=== PATIENT | female | born 1950 | race Caucasian/White ===

== ENCOUNTER 2016-10-29 10:45 | Day surgery (SDC) | payer MEDICARE ==
--- NOTE | ~2016-10-29 | EGD ---
EGD REPORT [facility] [address] [address] NAME: NERIS MÉNDEZ : [birth year] [place]US : [place] [facility] [place] [id number] AGE: 66 ADM/REG DATE : 10/29/16 MR#: [id number] REPORT SERV DATE: 10/29/16 DICTATED BY: DATE: REPORT STATUS : Draft TRANSCRIBED BY: [employer] DATE: 10/29/16 [facility] Patient Name: Neris Méndez Date of : 1950 Attending MD: BIANCA ALBERTS MD Procedure Date No Time: 10/29/2016 Procedure: Colonoscopy Indications: High risk colon cancer surveillance: Personal history of colonic polyps Referring MD: BENI MONTGOMERY Medicines: Monitored Anesthesia Care Complications: No immediate complications. Procedure: Pre-Anesthesia Assessment: - ASA Grade Assessment: III - A patient with severe systemic disease. After I obtained informed consent, the scope was passed under direct vision. Throughout the procedure, the patient's blood pressure, pulse, and oxygen saturations were monitored continuously. The PCF [id number] was introduced through the anus and advanced to the cecum, identified by appendiceal orifice and ileocecal valve. Findings: The perianal and digital rectal examinations were normal. A few small-mouthed diverticula were found in the sigmoid colon. An area of granular mucosa was found in the cecum. Biopsies were taken with a cold forceps for histology. A sessile polyp was found at the hepatic flexure. The polyp was small in size. The polyp was removed with a cold snare. Resection and retrieval were complete. A sessile polyp was found in the sigmoid colon. The polyp was small in size. The polyp was removed with a cold snare. Resection and retrieval were complete. A diffuse area of mildly erythematous mucosa was found in the entire colon. Biopsies were taken with a cold forceps for histology. No other significant abnormalities were identified in a careful examination of the remainder of the colon. There is no endoscopic evidence of mass, stenosis or ulcerations in the entire colon. No additional abnormalities were found on retroflexion. Impression: - Diverticulosis in the sigmoid colon. - Granularity in the cecum. Biopsied. - One small polyp at the hepatic flexure. Resected and retrieved. EGD REPORT [address] [address] NAME: NERIS MÉNDEZ : [birth year] STATUS : REG [facility]#: [id number] AGE: 66 ADM/REG DATE : 10/29/16 MR#: [id number] REPORT SERV DATE: 10/29/16 DICTATED BY: DATE: REPORT STATUS : Draft TRANSCRIBED BY: [employer] DATE: 10/29/16 - One small polyp in the sigmoid colon. Resected and retrieved. - Erythematous mucosa in the entire examined colon. Biopsied. Recommendation: - Patient has a contact number available for emergencies. The signs and symptoms of potential delayed complications were discussed with the patient. Return to normal activities tomorrow. Written discharge instructions were provided to the patient. - Regular diet. - Discharge patient to home. - Continue present medications. - Await pathology results. - Repeat colonoscopy in 5 years for surveillance. Procedure Code(s): --- Professional --- 86715, Colonoscopy, flexible, proximal to splenic flexure; with removal of tumor(s), polyp(s), or other lesion(s) by snare technique 71943, 59, Colonoscopy, flexible, proximal to splenic flexure; with biopsy, single or multiple Diagnosis Code(s): --- Professional --- K57.30, Diverticulosis of large intestine without perforation or abscess without bleeding K63.89, Other specified diseases of intestine D12.5, Benign neoplasm of sigmoid colon D12.3, Benign neoplasm of transverse colon K63.9, Disease of intestine, unspecified Z86.010, Personal history of colonic polyps CPT copyright 2013 [employer]. All rights reserved. The codes documented in this report are preliminary and upon fish cleaner machine tender review may be revised to meet current compliance requirements. BIANCA ALBERTS MD 10/29/2016 12:43 PM This report has been signed electronically. Number of Addenda: 0 Note Initiated On: 10/29/2016 12:00 PM Scope Withdrawal Time 0 hours 18 minutes 39 seconds EGD REPORT [place] [address] [address] NAME: NERIS MÉNDEZ : [birth year] [place] [facility] [place]#: [id number] AGE: 66 ADM/REG DATE : 10/29/16 MR#: [id number] REPORT SERV DATE: 10/29/16 DICTATED BY: DATE: REPORT STATUS : Draft TRANSCRIBED BY: [employer] DATE: 10/29/16 [facility] [id number]
--- NOTE | ~2016-10-29 | EGD ---
EGD REPORT [facility] [address] [address] NAME: NERIS MÉNDEZ : [birth year] STATUS : REG [facility] [place] PAT#: [id number] AGE: 66 ADM/REG DATE : 10/29/16 MR#: [id number] REPORT SERV DATE: 10/29/16 DICTATED BY: DATE: REPORT STATUS : Draft TRANSCRIBED BY: [employer] DATE: 10/29/16 [facility] Patient Name: Neris Méndez Date of : 1950 Attending MD: BIANCA ALBERTS MD Procedure Date No Time: 10/29/2016 Procedure: Upper GI endoscopy Indications: Dyspepsia, Weight loss Referring MD: BENI MONTGOMERY Medicines: Sedation Required Anesthesia Staff Assistance Complications: No immediate complications. Procedure: Pre-Anesthesia Assessment: - ASA Grade Assessment: III - A patient with severe systemic disease. After obtaining informed consent, the endoscope was passed under direct vision. Throughout the procedure, the patient's blood pressure, pulse, and oxygen saturations were monitored continuously. The GIF H190 [id number] was introduced through the mouth, and advanced to the third part of duodenum. The upper GI endoscopy was accomplished without difficulty. The patient tolerated the procedure well. Findings: The Z-line was irregular and was found 34 cm from the incisors. Biopsies were taken with a cold forceps for histology. No other significant abnormalities were identified in a careful examination of the esophagus. There is no endoscopic evidence of areas of erosion, stenosis, ulcerations, varices or mass in the entire esophagus. Diffuse moderately erythematous mucosa was found in the entire examined stomach. Biopsies were taken with a cold forceps for histology. There is no endoscopic evidence of ulceration, varices or mass in the entire examined stomach. The examined duodenum was normal. Biopsies were taken with a cold forceps for histology. There is no endoscopic evidence of stenosis or ulceration in the entire examined duodenum. The cardia and gastric fundus were normal on retroflexion. Impression: - Z-line irregular, 34 cm from the incisors. Biopsied. - Erythematous mucosa in the stomach. Biopsied. - Normal examined duodenum. Biopsied. Recommendation: - Patient has a contact number available for EGD REPORT [address] [address] NAME: NERIS MÉNDEZ : [birth year] STATUS : REG [facility] [place] PAT#: [id number] AGE: 66 ADM/REG DATE : 10/29/16 MR#: [id number] REPORT SERV DATE: 10/29/16 DICTATED BY: DATE: REPORT STATUS : Draft TRANSCRIBED BY: [facility] SERVICES DATE: 10/29/16 emergencies. The signs and symptoms of potential delayed complications were discussed with the patient. Return to normal activities tomorrow. Written discharge instructions were provided to the patient. - Return to previous diet. - Discharge patient to home. - Continue present medications. - Await pathology results. Procedure Code(s): --- Professional --- 10873, Esophagogastroduodenoscopy, flexible, transoral; with biopsy, single or multiple Diagnosis Code(s): --- Professional --- K22.8, Other specified diseases of esophagus K31.9, Disease of stomach and duodenum, unspecified K30, Functional dyspepsia R63.4, Abnormal weight loss CPT copyright 2013 [employer]. All rights reserved. The codes documented in this report are preliminary and upon sales representative meats review may be revised to meet current compliance requirements. BIANCA ALBERTS MD 10/29/2016 12:37 PM This report has been signed electronically. Number of Addenda: 0 Note Initiated On: 10/29/2016 12:01 PM Scope Withdrawal Time 0 hours 0 minutes 0 seconds [address] [id number]
[~2016-10-29 10:45] MED LIST: AGGRENOX PO; AMIT10 PO; AMIT25 PO; ASAB PO; BYSTOLIC10 MG PO; C5 PO; CALTRA600D PO; CREON DR 3,0001 EACH PO; CREON DR 36,001 EACH PO; FERROUS FUMARATE 325 MG PO; FLEX PO; FOLIC PO; JANTOVEN6 MG PO; KEPPRA XR750 MG PO; KEPPRA750 MG PO; LEVAQUIN5T PO; LOM PO; LOP25 PO; LORT7 PO; LORTAB 5 PO; MEG40 PO; MULTIVITAMI1 PO; NEXIUM40 PO; NORCO1 TA2 PO; NORV5 PO; OS500+D PO; PLAVIX PO; PR25 PO; PRAVACHOL40 MG PO; PREV30 PO; PREVALITE4 G1 PO; PRIN10 PO; PRINZIDE1 TA1 PO; VIOKASE OR; VIT D PO
[2016-10-29 11:24] LABS: INTERNATIONAL NORMAL RATI 1.5 UNITS (-)
[2016-10-29 11:25] LABS: BUN (BLOOD UREA NITROGEN) 32 MG/DL (6-23); CALCIUM, SERUM 10.2 MG/DL (8.5-10.4); CHLORIDE, SERUM 111 MMOL/L (96-112); CO2 (CARBON DIOXIDE) 25 MMOL/L (24-34); CREATININE 2.28 MG/DL (0.55-1.02); GFR AFRICAN AMERICAN 25 ML/MIN (>=60); GFR NON AFRICAN AMERICAN 22 ML/MIN (>=60); GLUCOSE, SERUM 94 MG/DL (60-99); POTASSIUM, SERUM 4.7 MMOL/L (3.5-5.3); SODIUM, SERUM 144 MMOL/L (135-148)
== END 2016-10-29 23:59 | disposition home or self-care (01) ==
LOC: DMU 10:45
PROVIDERS: Anesthesiology; Internal Medicine Gastroenterology
PROC: 0DBL8ZZ Excision of Transverse Colon, Via Natural or Artificial Opening Endoscopic (ICD-10-PCS; 2016-10-29)
PROC: 0DB58ZX Excision of Esophagus, Via Natural or Artificial Opening Endoscopic, Diagnostic (ICD-10-PCS; 2016-10-29)
PROC: 0DB98ZX Excision of Duodenum, Via Natural or Artificial Opening Endoscopic, Diagnostic (ICD-10-PCS; 2016-10-29)
PROC: 0DB68ZX Excision of Stomach, Via Natural or Artificial Opening Endoscopic, Diagnostic (ICD-10-PCS; 2016-10-29)
PROC: 0DBH8ZX Excision of Cecum, Via Natural or Artificial Opening Endoscopic, Diagnostic (ICD-10-PCS; principal; 2016-10-29 12:30)
PROC: 0DBE8ZX Excision of Large Intestine, Via Natural or Artificial Opening Endoscopic, Diagnostic (ICD-10-PCS; 2016-10-29 12:30)
PROC: 0DBN8ZZ Excision of Sigmoid Colon, Via Natural or Artificial Opening Endoscopic (ICD-10-PCS; 2016-10-29 12:30)
DX: D12.3 Benign neoplasm of transverse colon (principal); K52.9 Noninfective gastroenteritis and colitis, unspecified; K57.30 Diverticulosis of large intestine without perforation or abscess without bleeding; I10 Essential (primary) hypertension; J44.9 Chronic obstructive pulmonary disease, unspecified; F17.200 Nicotine dependence, unspecified, uncomplicated; Z86.010 Personal history of colon polyps; Z86.73 Personal history of transient ischemic attack (TIA), and cerebral infarction without residual deficits; Z95.2 Presence of prosthetic heart valve; Z87.19 Personal history of other diseases of the digestive system; Z88.1 Allergy status to other antibiotic agents; Z79.01 Long term (current) use of anticoagulants; Z79.891 Long term (current) use of opiate analgesic; Z79.82 Long term (current) use of aspirin; Z79.899 Other long term (current) drug therapy
CPT/HCPCS: 80048; 85610; 88305